=== PATIENT | female | born 1980 | race Two or more races ===

== ENCOUNTER 2018-12-30 05:56 | Emergency (ER) | payer OTHER ==
[~2018-12-30] VITALS: Ht 167.6 cm; Wt 61.2 kg
[2018-12-30 06:15] VITALS: BP 110/86
[2018-12-30] MEDS ORDERED: cefTRIAXone SOD 1,000 MG VL IM ONE (07:00)
[2018-12-30] MEDS ORDERED: CLINDAMYCIN 600 MG/4 ML VL IM ONE (07:00)
[2018-12-30] MEDS ORDERED: methylPREDNISolone SOD SUCC 125 MG/2 ML VL IM ONE (07:00)
== END 2018-12-30 07:36 | disposition home or self-care (01) ==
LOC: ER 05:56
DX: T78.40XA Allergy, unspecified, initial encounter (principal); Z88.1 Allergy status to other antibiotic agents; Z88.6 Allergy status to analgesic agent; X58.XXXA Exposure to other specified factors, initial encounter
CPT/HCPCS: 96372; 99283; J2930